=== PATIENT | female | born 1975 | race Two or more races ===

== ENCOUNTER 2017-03-26 22:40 | Emergency (ER) | payer SELFPAY ==
[~2017-03-26] VITALS: Ht 157.5 cm; Wt 53.5 kg
[2017-03-26] MEDS ORDERED: NKM (23:42)
[2017-03-27] MEDS ORDERED: LORazepam 1mg tab ORAL ONE (00:45)
[2017-03-27] MEDS ORDERED: Metoprolol 5mg/5ml Inj IVP SCH (00:45)
[2017-03-27] MEDS ORDERED: Metoprolol Tartrate 50mg tab ORAL ONE (00:45)
[2017-03-27] MEDS ORDERED: ATIVAN1 MG ORAL (01:21)
--- NOTE | 2017-03-27 01:21 | Emergency Room Report ---
History of Present Illness General Chief Complaint: General Complaint Source: Patient Present Illness HPI This patient has a history of anxiety and insomnia. She also has chronic chest pain. She present with chief complaint of chest pain unable to sleep. No palpitation. [place]well anxious. No nausea no vomiting. No other injury. No suicidal thought homicidal thought. Allergies: Coded Allergies: No Known Allergies (Unverified , 03/26/17) Patient History Past Medical History: see triage record, old chart reviewed Past Surgical History: none Pertinent Family History: none Social History: Denies: smoking Last Menstrual Period: Feb Now: No Immunizations: other Reviewed Nursing Documentation: PMH: Agreed, PSxH: Agreed Nursing Documentation-PMH Past Medical History: No Stated History Review of Systems Eye: Denies: eye pain, blurred vision ENT: Denies: ear pain, nose congestion, throat swelling Respiratory: Denies: cough, shortness of breath Cardiovascular: Denies: chest pain, palpitations Gastrointestinal: Denies: abdominal pain, diarrhea, nausea, vomiting Musculoskeletal: Denies: back pain, joint pain Skin: Denies: rash Neurological: Denies: headache, numbness Endocrine: Denies: increased thirst, increased urine Hematologic/Lymphatic: Denies: easy bruising All Other Systems: negative except mentioned in HPI Physical Exam Vital Signs Date Time Temp Pulse Resp B/P (MAP) Pulse Ox O2 Delivery O2 Flow Rate FiO2 03/26/17 23:33 98.1 91 16 138/87 98 Room Air vitals normal Sp02 EP Interpretation: reviewed, normal General Appearance: well appearing, no apparent distress, alert Head: normocephalic, atraumatic Eyes: bilateral eye PERRL, bilateral eye EOMI ENT: hearing grossly normal, normal pharynx Neck: full range of motion, supple, no meningismus Respiratory: chest non-tender, lungs clear, normal breath sounds Cardiovascular #1: regular rate, rhythm, no murmur Gastrointestinal: normal bowel sounds, non tender, no mass, no organomegaly, no bruit, non-distended Musculoskeletal: back normal, gait/station normal, normal range of motion Psychiatric: anxious Skin: warm/dry Medical Decision Making Diagnostic Impression: Primary Impression: Anxiety ER Course She presents with anxiety and palpitation. Noncardiac chest pain. Is a chronic issue for her. She's felt better after Ativan. We'll discharge home. Last Vital Signs Date Time Temp Pulse Resp B/P (MAP) Pulse Ox O2 Delivery O2 Flow Rate FiO2 03/26/17 23:33 98.1 91 16 138/87 98 Room Air Status: improved Disposition: HOME, SELF-CARE Condition: Stable Scripts Lorazepam* (ATIVAN*) 1 Mg Tablet 1 MG ORAL BEDTIME, #30 TAB Prov: TAMIKA LO M.D. 03/27/17 Referrals: NOT CHOSEN IPA/,REFERRING (PCP) Additional Instructions: Followup your DrLauren in 7 days. Return if worse. TAMIKA LO M.D. Mar 27, 2017 01:21
[2017-03-27 01:22] VITALS: BP 138/87
== END 2017-03-27 01:26 | disposition home or self-care (01) ==
LOC: EDBD 22:40 → EMR 03-27 00:35
DX: F41.9 Anxiety disorder, unspecified (principal); G47.00 Insomnia, unspecified
CPT/HCPCS: 96361; 96374; 99284